=== PATIENT | male | born 1960 | race Caucasian/White ===

== ENCOUNTER → 2024-05-22 16:44 | Outpatient (BNVA) | payer OTHER, SELFPAY | PROVIDERS: PCP Nurse Practitioner Family; Visit Provider Nurse Practitioner Family | DX: E11.9 Type 2 diabetes mellitus without complications (principal) | CPT/HCPCS: 80053; 80061; 82043; 82607; 83036; 83721; 84443; 85025 ==

== ENCOUNTER → 2024-08-21 11:29 | Outpatient (BNVA) | payer OTHER, SELFPAY | PROVIDERS: PCP Nurse Practitioner Family; Visit Provider Nurse Practitioner Family | DX: Z12.5 Encounter for screening for malignant neoplasm of prostate (principal); E11.9 Type 2 diabetes mellitus without complications | CPT/HCPCS: 80053; 80061; 83036; 85025; G0103 ==

== ENCOUNTER → 2025-04-01 10:05 | Outpatient (BNVA) | payer OTHER, SELFPAY | PROVIDERS: PCP Nurse Practitioner Family; Visit Provider Nurse Practitioner Family | DX: M25.512 Pain in left shoulder (principal); G89.29 Other chronic pain; E11.9 Type 2 diabetes mellitus without complications | CPT/HCPCS: 73030; 80053; 80061; 82040; 82607; 83036; 84270; 84403; 84443; 85025 ==

== ENCOUNTER → 2025-04-14 08:24 | Outpatient (BNVA) | payer OTHER, SELFPAY | PROVIDERS: PCP Nurse Practitioner Family; Visit Provider Orthopaedic Surgery | DX: M19.012 Primary osteoarthritis, left shoulder (principal); M25.712 Osteophyte, left shoulder | CPT/HCPCS: 99204 ==

== ENCOUNTER 2025-05-06 10:31 | Outpatient (CLI) | payer OTHER, SELFPAY ==
--- NOTE | 2025-05-06 11:45 | MR_ITS ---
WS: [id number] MRI LEFT SHOULDER NONCONTRAST TECHNIQUE: Sagittal T2, coronal T1, T2 and proton density imaging. Axial gradient PDE imaging. CLINICAL INFORMATION: Left shoulder pain COMPARISON: None. FINDINGS: Advanced arthritis AC joint with a small amount of fluid and edema. Impingement on the supraspinatus with narrowing of the subacromial space. Subacromial spurring. Mild to moderate downsloping acromion. Chronic thinning of the distal supraspinatus with tendinopathy and a small interstitial tear. Infraspinatus appears intact. Normal teres minor. Normal subscapularis. Medial subluxation of the biceps tendon along the proximal bicipital groove. Tendinopathy biceps tendon. Somewhat diminutive but intact intra-articular biceps tendon. Advanced degenerative narrowing glenohumeral articulation. Thickening along the axillary recess with diminutive appearing shoulder capsule. This can be seen with adhesive capsulitis in the appropriate clinical setting. Small amount of edema in the rotator interval. MR/MR shoulder LT wo con* [id number] IMPRESSION: 1. Advanced arthritis AC joint with narrowing of the subacromial space. Imping ement of the supraspinatus with chronic thinning. 2. Tendinopathy supraspinatus with small interstitial tear. 3. Rotator cuff otherwise appears intact. 4. Slight medial subluxation of the biceps tendon in the bicipital groove with tendinopathy. Diminutive intra-articular biceps tendon which appears intact. 5. Thickening along the axillary recess with diminutive appearing shoulder cap fawad can be seen with adhesive capsulitis in the appropriate clinical setting.
== END 2025-05-06 10:32 | disposition home or self-care (01) ==
LOC: RAD 10:34
PROVIDERS: PCP Nurse Practitioner Family; Visit Provider Orthopaedic Surgery
DX: M19.012 Primary osteoarthritis, left shoulder (principal); M75.102 Unspecified rotator cuff tear or rupture of left shoulder, not specified as traumatic; M67.814 Other specified disorders of tendon, left shoulder
CPT/HCPCS: 73221

== ENCOUNTER → 2025-08-11 11:37 | Outpatient (BNVA) | payer OTHER, SELFPAY | PROVIDERS: PCP Nurse Practitioner Family; Visit Provider Nurse Practitioner Family | DX: N20.0 Calculus of kidney (principal); M16.0 Bilateral primary osteoarthritis of hip; G31.89 Other specified degenerative diseases of nervous system | CPT/HCPCS: 74018; 81003 ==

== ENCOUNTER → 2025-09-29 10:59 | Outpatient (BNVA) | payer OTHER, SELFPAY | PROVIDERS: PCP Nurse Practitioner Family; Visit Provider Internal Medicine Cardiovascular Disease | DX: E78.5 Hyperlipidemia, unspecified (principal); E11.9 Type 2 diabetes mellitus without complications; I10 Essential (primary) hypertension; R00.1 Bradycardia, unspecified; I65.29 Occlusion and stenosis of unspecified carotid artery; Z95.5 Presence of coronary angioplasty implant and graft; F17.200 Nicotine dependence, unspecified, uncomplicated | CPT/HCPCS: 93005; 99204; 99214 ==